=== PATIENT | male | born 1990 | race African-American/Black ===

== ENCOUNTER 2024-06-27 07:14 | Day surgery (SDC) | payer OTHER, SELFPAY ==
[2024-06-27 07:50] VITALS: BP 150/85; PULSE 74; RESP 17; TEMP 36.3; O2SAT 100
[2024-06-27] MEDS: LACTATED RINGERS 1,000 ML 42 ML IV (07:55)
--- NOTE | 2024-06-27 08:30 | PM.HP.1 ---
History of Present Illness History of Present Illness Chief complaint: Colonoscopy Narrative: Rectal bleed with bright red blood, 1 episode [facility] Surgical History (Updated 06/27/24 @ 07:31 by Ely Thapa RN) History of left inguinal hernia repair Social History Smoking Status: Never smoker alcohol intake: current Meds Home Medications and Allergies Home Medications Medication Instructions Recorded Confirmed Type No Known Home Medications 06/27/24 06/27/24 History Allergies Allergy/AdvReac Type Severity Reaction Status Date / Time No Known Drug Allergies Allergy Verified 06/27/24 07:31 Exam Vital Signs (past 8 hours): - 06/27/24 07:50 Temperature 97.4 F L Pulse Rate 74 Respiratory Rate 17 Blood Pressure 150/85 H Pulse Oximetry 100 Oxygen Delivery Method Room Air Oxygen Delivery Method Room Air Narrative Exam Narrative: oropharynx free of lesions Chest clear to auscultation percussion Cardiac exam reveals no S3 or murmur Assessment & Plan Assessment & Plan narrative: history of rectal bleeding without recurrence. Need for colonoscopy rule out hemorrhoids or other issues. Risks, benefits, alternatives have been explained. Time-Based Coding :: [TOTAL MINUTES] spent with patient and on the chart (including review of chart, obtaining history, exam, reviewing outside data, placing orders, documenting exam and treatment plan, and counseling patient) on [DATE].
--- NOTE | 2024-06-27 08:32 | PM.OP.COLON ---
Operative Date/Time/Diagnoses Date of procedure: 06/27/24 Pre-op diagnosis: See indication and findings Procedure & Clinicians Study performed: colonoscopy Same procedure as scheduled: Yes ([id number];) Indications: rectal bleeding Surgeon: Isidoro Barriga Procedure Notes Procedure in detail: after informed consent was obtained the patient was placed in left lateral decubitus position. The video colonoscope was placed into the rectum slowly advanced cecum. Preparation was good. On slow withdrawal mucosa was carefully examined. The scope was removed. The patient tolerated procedure well. Blood loss none Complications none Sedation mac Findings 1. Mild internal hemorrhoids 2. Otherwise negative colonoscopy to cecum Patient should have follow-up colonoscopy when he turns 44
[2024-06-27 08:56] VITALS: BP 99/72; PULSE 95; RESP 20; TEMP 36.3; O2SAT 99
[2024-06-27 09:01] VITALS: BP 122/71; PULSE 85; RESP 17; O2SAT 100
[2024-06-27 09:05] VITALS: BP 141/73; PULSE 77; RESP 18; O2SAT 99
[2024-06-27 09:16] VITALS: BP 139/81; PULSE 82; RESP 16; O2SAT 99
== END 2024-06-27 09:17 | disposition home or self-care (01) ==
PROVIDERS: Referring Provider Internal Medicine Gastroenterology; Visit Provider Internal Medicine Gastroenterology
PROC: 0DJD8ZZ Inspection of Lower Intestinal Tract, Via Natural or Artificial Opening Endoscopic (ICD-10-PCS; CPT 45378; principal; 2024-06-27 08:30)
DX: K62.5 Hemorrhage of anus and rectum (principal); K64.8 Other hemorrhoids
CPT/HCPCS: 45378; J2704